=== PATIENT | female | born 1950 | race Caucasian/White ===

== ENCOUNTER 2017-10-23 21:50 | Inpatient (IN) | payer MEDICARE, BC ==
[2017-10-24] MEDS ORDERED: Piperacillin/Tazobactam 3.375 GM in Sodium Chloride 0.9% 100 ML IVPB SCH (00:30)
[2017-10-24 00:52] LABS: #Lymphocytes 1.4 thou/uL (1.20-3.40); #Neutrophils 12.2 thou/uL (1.40-6.50); %Basophils 0.2 % (0.0-1.0); %Eosinophils 0.2 % (0.0-10.0); %Lymphocytes 8.8 % (21.0-51.0); %Monocytes 12.5 % (0.0-10.0); %Neutrophils 78.3 % (42.0-75.0); Hemoglobin 10.9 g/dL (12.0-16.0); Mean Corpuscular HGB CONC 33.1 g/dL (32.0-36.0); Mean Corpuscular Hemoglobin 30.3 pg (27.0-31.0); Mean Corpuscular Volume 91.6 fl (81.0-99.0); Mean Platelet Volume 7.3 fL (7.4-10.4); Platelet Count 408 thou/uL (130-400); RBC Distribution Width 11.2 % (11.5-14.5); Red Blood Cell (RBC) Count 3.59 mill/uL (4.20-5.40); White Blood Cell (WBC) Count 15.6 thou/uL (4.8-10.8)
[2017-10-24 00:57] LABS: INR-International Normal Ratio 1.2; Prothrombin Time 15.3 SEC (12.0-14.7)
[2017-10-24 00:58] LABS: PTT 39.4 SEC (22.9-36.1)
[2017-10-24 01:14] LABS: ALT (SGPT) 17 U/L (8-55); AST (SGOT) 20 U/L (5-34); Albumin 3.3 g/dL (3.4-4.8); Alkaline Phosphatase 124 U/L (40-150); Anion Gap 14 mmol/L (10-20); BUN (Urea Nitrogen) 8 mg/dL (9.8-20.1); Bilirubin, Total 0.3 mg/dL (0.2-1.2); Calc. Creatinine Clearance 0 mL/min (70-130); Calcium 8.9 mg/dL (7.8-10.44); Carbon Dioxide 22 mmol/L (23-31); Chloride 103 mmol/L (98-107); Estimated GFR-MDRD Greater than 90; Globulin 3.4 g/dL (2.4-3.5); Glucose 109 mg/dL (80-115); Potassium 3.8 mmol/L (3.5-5.1); Protein, Total 6.7 g/dL (6.0-8.3); Sodium 135 mmol/L (136-145)
[2017-10-24 01:18] LABS: CKMB 0.4 ng/mL (0-6.6); Troponin I Less than 0.010 ng/mL (< 0.028)
[2017-10-24] MEDS ORDERED: Acetaminophen 325 MG TAB PO PRN (04:56)
[2017-10-24] MEDS ORDERED: Ondansetron HCl/PF 4 MG/2 ML Vial IVP PRN (04:56)
[2017-10-24] MEDS ORDERED: Ondansetron ODT 4 MG TAB SL PRN (04:56)
[2017-10-24 05:29] VITALS: BMI 20.5
--- NOTE | 2017-10-24 11:33 | PDOC.EVN ---
Event Note - Event Note Event Note: [id number] H&P Dictated 1. pneumonia 2. r/o lung mass 3. atypical chest pain 4. H/O MS
[2017-10-24] MEDS ORDERED: HYDROcodone/Acetaminophen 5/325 mg Tablet PO PRN (11:36)
[2017-10-24] MEDS: Azithromycin 500 MG in Sodium Chloride 0.9% 250 ML 250 ML IVPB SCH (13:33)
[2017-10-24 13:58] LABS: Troponin I Less than 0.010 ng/mL (< 0.028)
[2017-10-24] MEDS: Acetaminophen 325 MG TAB PO PRN (16:21)
--- NOTE | 2017-10-24 16:59 | HP ---
DATE OF ADMISSION: 10/24/2017 CHIEF COMPLAINT: Cough. HISTORY OF PRESENT ILLNESS: The patient is a 67-year-old female with past medical history of multipl e sclerosis, now came to the hospital with complaints of cough. The patient was having cough and sor e throat and runny nose for the past 1 month. Patient was diagnosed having allergies, but patient's symptoms persisted, so she went to a nurse practitioner, patient was sent for chest x-ray. Chest x-r ay was abnormal, so patient had a CT chest. CT chest showed some possible pneumonia and mass, so anabella pena was advised to come to [facility] and patient was transferred from [facility] to our [facility]. The patient complains of cough with sputum production, sputum brown in color, there is some blood tinge also. Complains of right-sided chest pain, intermittent, sharp kind of pain, worsens with angi athing. Denies any fever, denies any chills, denies any cough, denies production, denies any diarrhe a, denies any bloody stools, denies any black stools. PAST MEDICAL HISTORY: As per HPI. SOCIAL HISTORY: Denies smoking, denies alcohol, and denies any drugs. PAST SURGICAL HISTORY: . FAMILY HISTORY: Reviewed. MEDICATIONS: Reviewed. REVIEW OF SYSTEMS: Constitutional: Denies any fever, denies any chills. Eyes: No visual problems. Nose: Positive for rhinorrhea. Oral Cavity: Positive for sore throat. Neck: Denies any neck pa in. Cardiovascular System: Positive for right-sided chest pain. Cranial Nerve System: Denies sync ope. Psychiatric: Denies anxiety. Integument: Denies any rash. Respiratory System: Positive for cough and sputum production. Gastrointestinal: Denies nausea, vom iting. Genitourinary: Denies dysuria. All other review of systems are reviewed and are negative. PHYSICAL EXAMINATION: CONSTITUTIONAL/VITAL SIGNS: At the time of H and P performed, temperature 100.4, heart rate 93, resp iration 16, blood pressure is 113/64, pulse ox 97%. GENERAL: This patient appears comfortable. HEENT: Pupils equal, round, and reactive to light. Naris patent. Nose normal. Ears normal. Teeth intact. Tongue is moist. NECK: Supple, no JVD. CARDIOVASCULAR SYSTEM: S1, S2 present. Regular rate and rhythm, no murmurs, no rubs, no gallops. RESPIRATORY SYSTEM: Positive for right side diminished breath sounds present. Positive for crackles . No wheezing, no accessory muscle seen. GASTROINTESTINAL: Abdomen is soft, nontender, no guarding, no organomegaly, no masses felt. MUSCULOSKELETAL: No edema. CRANIAL NERVE SYSTEM: Awake, follows commands. Speech clear. PSYCHIATRIC: Mood appropriate at this time. INTEGUMENTARY: No rashes seen. LABORATORY DATA: Labs at the time of H and P performed, sodium 134, potassium 3.8, chloride 103, CO2 of 22, BUN of 18 and creatinine 0.64, albumin 3.3. PT 15.3, INR 1.2. White count 15.6, hemoglobin 10.9, platelets 148. ASSESSMENT AND PLAN: The patient is a 67 years old female. 1. Pneumonia. Plan to start patient on broad-spectrum antibiotics. Plan to start patient on IV Lev aquin and Rocephin. Monitor patient closely. Plan to send sputum for culture and sensitivity. 2. Right-sided atypical chest pain, possible pleurisy. If cardiac enzymes negative, we will . We will monitor the patient closely at this time with p.r.n. pain medications. 3. Rule out lung mass. Plan to consult Pulmonary to evaluate the patient and we will wait for CT re port. If CT report is abnormal, we will consult Oncology also. 4. History of multiple sclerosis. Continue home medications. The case was discussed in detail with the patient. Patient is FULL CODE.
[2017-10-24 19:41] LABS: Troponin I Less than 0.010 ng/mL (< 0.028)
[2017-10-24] MEDS: clonazePAM 0.5 MG TAB PO SCH (19:54)
[2017-10-24 23:50] LABS: Legionella Urinary Ag Negative (Negative); Strep pneumo Urine Ag NEGATIVE (NEGATIVE)
[2017-10-25] MEDS ORDERED: Loratadine 10 MG TAB PO SCH ×2 (01:00→09:00)
[2017-10-25] MEDS: clonazePAM 0.5 MG TAB PO SCH ×2 (02:31→02:35)
--- NOTE | 2017-10-25 02:44 | CON ---
DATE OF CONSULTATION: 10/24/2017 SERVICE: Pulmonary Medicine. REASON FOR CONSULTATION: Abnormal CT finding. HISTORY OF PRESENT ILLNESS: The patient is a 67-year-old white female with past medical history significant for insomnia. She uses Ambien and clonazepam in order to help her sleep at night. She was in her usual state of health until roughly 2 days prior to presentation. She started having onset of chest discomfort. She had a low grade temperature. She presented to her primary care physician who did a chest x-ray demonstrating an infiltrate. CT scan was performed. She was then called from home and told to go directly to the emergency department. In [place], she was subsequently transitioned to us. She has been coughing up a little bit of brown sputum for a couple of days. She denied any significant hemoptysis, nausea, vomiting or diarrhea. She had no arthralgias or rashes. Since being in the hospital, she has actually started feeling better already. She has been started on some broad spectrum antibiotics. PAST MEDICAL HISTORY: 1. Multiple sclerosis. 2. Insomnia. PAST SURGICAL HISTORY: section. FAMILY HISTORY: Noncontributory. SOCIAL HISTORY: Negative for alcohol, tobacco or illicit drug use. She is a lifelong nonsmoker. She denies any exposure to chemicals, dust asbestos or tuberculosis. ALLERGIES: SULFA and ASPIRIN. MEDICATIONS: List of her home medications as well as inpatient medications were reviewed. Multiple updates were made. REVIEW OF SYSTEMS: General, head, ears, eyes, nose, throat, cardiovascular, respiratory, GI, , musculoskeletal, neurologic and skin is negative except as mentioned in the HPI. PHYSICAL EXAMINATION: VITAL SIGNS: Currently afebrile with T-max over the last 12 hours 100.5, pulse 109, blood pressure 124/57, respirations 16, saturation 97% on room air. GENERAL: Patient is awake, alert, in no apparent distress. LUNGS: Decent air entry. There is no prolonged expiratory phase. There is E: A egophony in the right anterior chest. Dullness to percussion is located at that site. HEART: Normal rate and regular. ABDOMEN: Soft, nontender, nondistended. Bowel sounds are positive. MUSCULOSKELETAL: No cyanosis or clubbing. No pitting in the bilateral lower extremities. NEUROLOGIC: Grossly nonfocal. LABORATORY DATA: WBC 15.6, hemoglobin 10.9, platelets 408,000. INR 1.2. Basic metabolic profile and liver function studies are otherwise unremarkable. Cardiac enzymes are negative x3. Lactate is also unremarkable. Influenza A and B is negative. IMAGING: CT of the chest demonstrates a very dense consolidation in the anterior segment of the right upper lobe and fully soaked in right middle lobe. This is not atelectasis as they are clearly air bronchograms. It is full of fluid suggestive of pneumonia. There is also a small hypodense lesion in the medial segment of the right middle lobe. This may be early abscess formation. Underlying mass cannot be excluded; however. Otherwise, there is no acute cardiopulmonary abnormality. ASSESSMENT: 1. Community-acquired pneumonia, severe. 2. Obstructive sleep apnea, suspected. 3. Multiple sclerosis. DISCUSSION AND PLAN: The patient will follow up with me in clinic in 2 weeks with a pre-clinic chest x-ray. I would like for her to go out on a 2-week course of Levaquin. I will add strep and legionella urine antigen. She can be considered for transition to home if her fever profile improves by the morning. In 2 weeks, we will arrange for her to undergo an outpatient CT of the chest in roughly 2 months. In the meantime, we will get plugged in for a polysomnogram if possible. I would prefer for her to do an in-lab study with her history of multiple sclerosis. Cough suppressants will be discontinued. 70 minutes have been devoted to this patient in various activities. I personally reviewed all imaging studies and laboratory data noted within this document. For at least half of this time, I was interacting with the patient at the bedside or coordinating care with the care team. For the remainder of the time I was immediately available to the patient in the hospital unit. SONIA
[2017-10-25 06:35] LABS: #Eosinphils 0.1 thou/uL (0.0-0.7); #Lymphocytes 1.3 thou/uL (1.20-3.40); #Monocytes 1.3 thou/uL (0.11-0.59); #Neutrophils 8.8 thou/uL (1.40-6.50); %Basophils 0.1 % (0.0-1.0); %Eosinophils 0.5 % (0.0-10.0); %Lymphocytes 11.2 % (21.0-51.0); %Monocytes 11.1 % (0.0-10.0); %Neutrophils 77.1 % (42.0-75.0); Hemoglobin 9.9 g/dL (12.0-16.0); Mean Corpuscular HGB CONC 33.2 g/dL (32.0-36.0); Mean Corpuscular Hemoglobin 30.3 pg (27.0-31.0); Mean Corpuscular Volume 91.1 fl (81.0-99.0); Mean Platelet Volume 6.8 fL (7.4-10.4); Platelet Count 407 thou/uL (130-400); RBC Distribution Width 11.2 % (11.5-14.5); Red Blood Cell (RBC) Count 3.28 mill/uL (4.20-5.40); White Blood Cell (WBC) Count 11.4 thou/uL (4.8-10.8)
[2017-10-25 06:46] LABS: Anion Gap 10 mmol/L (10-20); BUN (Urea Nitrogen) 8 mg/dL (9.8-20.1); Calc. Creatinine Clearance 75 mL/min (70-130); Carbon Dioxide 25 mmol/L (23-31); Chloride 104 mmol/L (98-107); Estimated GFR-MDRD Greater than 90; Glucose 114 mg/dL (80-115); Potassium 3.9 mmol/L (3.5-5.1); Sodium 135 mmol/L (136-145)
[2017-10-25] MEDS: ALPHA LIPOIC ACID 200 MG PO SCH ×2 (08:45→12:04)
[2017-10-25] MEDS ORDERED: B COMPLEX PO SCH (09:00)
[2017-10-25] MEDS ORDERED: medroxyPROGESTERone Acetate 5 MG TAB PO SCH (09:00)
[2017-10-25] MEDS ORDERED: Magnesium Oxide 400 MG TAB PO SCH (09:00)
[2017-10-25] MEDS ORDERED: LUTEIN 6 MG PO SCH (09:00)
[2017-10-25] MEDS ORDERED: Ascorbic Acid 500 mg Chewable Tablet PO SCH (09:00)
[2017-10-25] MEDS ORDERED: Calcium Carbonate + Vit D 1 TAB PO SCH (09:00)
--- NOTE | 2017-10-25 10:25 | PDOC.PN ---
- Subjective Encounter Start Date: 10/25/17 Encounter Start Time: 13:32 CC: Pneumonia Sub: Pt denies dyspnea. says he feels better - Objective Vital Signs & Weight: Vital Signs (12 hours) Temp Pulse Resp BP BP Pulse Ox 10/25/17 07:50 98.8 F 96 16 116/57 L 97 10/25/17 03:43 98.7 F 103 H 16 123/57 L 96 10/24/17 23:20 98.0 F 114 H 16 144/65 H 99 10/24/17 23:04 94 L Weight Weight 119 lb 14.903 oz I&O: 10/24/17 10/25/17 10/26/17 06:59 06:59 06:59 Intake Total 250 1950 Balance 250 1950 Result Diagrams: 10/25/17 06:04 10/25/17 06:04 Dx/Plan - Plan - Physical Examination Constitutional: NAD HEENT: moist MMs Neck: no JVD Respiratory: no wheezing, no rales, no rhonchi Cardiovascular: RRR, no significant murmur, no rub, gallop Gastrointestinal: soft, non-tender, no distention Musculoskeletal: no edema Neurological: non-focal not oriented, follows commands Psychiatric: normal affect -: positive for unstageable sacral decubitus ulcer Dx/Plan - Plan Pt is 67 yrs old female now admitted to hospital due to cough 1. Pneumonia: legionella ag, urinary ag negative. Preliminary cultures no growth so far Appreciate pulmonary input 2. R/O Lung mass: Reviewed pulmonary note. Recommend repeat CT chest as outpt Monitor for now 3. Rt side chest pain/Pleurisy: PRN pain med Monitor respiratory status closely 4. H/O MS: Continue home meds 5. Dispo: Discharge today.
[2017-10-25] MEDS: Azithromycin 500 MG in Sodium Chloride 0.9% 250 ML 250 ML IVPB SCH (11:58)
[2017-10-25] MEDS: Acetaminophen 325 MG TAB PO PRN (11:58)
[2017-10-25 14:48] VITALS: BP 130/60; TEMP 98.7
--- NOTE | 2017-10-25 20:06 | DIS ---
DATE OF ADMISSION: 10/24/2017 DATE OF DISCHARGE: 10/25/2017 DISCHARGE DIAGNOSES: 1. Pneumonia. 2. Atypical chest pain, right-sided. 3. Anemia. 4. History of multiple sclerosis. 5. Rule out lung mass. DISCHARGE CONDITION: Stable. DISPOSITION: Home. DISCHARGE MEDICATION: See med rec form. HISTORY OF PRESENT ILLNESS: See initial HPI. CONSULTANTS DURING THE HOSPITAL STAY: Pulmonary. HOSPITAL COURSE: Patient is a 67-year-old female admitted secondary to pneumonia. 1. Pneumonia. The patient was seen by Pulmonary patient was treated with IV antibiotics. Patient w as suspected to having possible lung mass, but Pulmonary saw the patient and recommended no further w orkup, recommended to follow up with repeat CT chest in 2-3 weeks upon discharge with him. The patie nt agreed to follow up with Dr. Easley as an outpatient upon discharge, so patient was discharged on p.o. antibiotics as Dr. Easley recommended for 2 more weeks and recommended to see him as an outpat ient for repeat CT chest. 2. History of MS. The patient was advised to continue home medications, stable during the hospital s [place]. 3. Anemia. Hemoglobin monitored and was stable. 4. Right-sided atypical chest pain. Cardiac enzymes were done which was negative. On the day of discharge, patient is stable. Please see progress note for physical exam. DISCHARGE CONDITION: Stable. DISPOSITION: Home. DISCHARGE INSTRUCTIONS: 1. Follow with PCP in 2-3 days. 2. Follow up with Pulmonary, Dr. Easley in 1-[address] chest. 3. Finish antibiotic course. DISCHARGE TIME: 40 minutes.
--- NOTE | 2017-11-28 18:18 | EKG ---
Test Reason : CP Blood Pressure : / mmHG Vent. Rate : 101 BPM Atrial Rate : 101 BPM P-R Int : 156 ms QRS Dur : 062 ms QT Int : 314 ms P-R-T Axes : 060 069 052 degrees QTc Int : 407 ms Sinus tachycardia with Premature atrial complexes Otherwise normal ECG Confirmed by WEST FARIAS ([id number]), non linear editor COLLINS MROALES ([id number] on 11/28/2017 6:18:11 PM Referred By: Confirmed By:WEST FARIAS
== END 2017-10-25 15:10 | disposition home or self-care (01) | DRG 195 ==
LOC: ERS 21:50 → ERHOLD 10-24 01:09 → ONC 10-24 04:45
PROVIDERS: ADMIT Hospitalist; ATTEND Hospitalist
DX: J18.9 Pneumonia, unspecified organism (principal); G35 Multiple sclerosis; D64.9 Anemia, unspecified; G47.33 Obstructive sleep apnea (adult) (pediatric)
CPT/HCPCS: 36415; 80048; 80053; 82553; 83605; 84484; 85025; 85610; 85730; 86850; 86900; 86901; 87040; 87804; 87899; 93005; 94640; 96365; J0456; J1956; J2543; J7050; J7620

== ENCOUNTER 2017-11-06 09:54 | Outpatient (CLI) | payer MEDICARE, BC ==
--- NOTE | 2017-11-06 11:17 | RAD ---
PA AND LATERAL CHEST XRAY: DATE: 11/06/17. HISTORY: Dyspnea. FINDINGS: There is a patchy parenchymal opacity seen within the anterior aspect of the right upper lobe. The l eft lung is clear. There is biapical pleural and parenchymal scarring present. Lungs are mildly hyp erexpanded. The left lung is clear. Cardiac silhouette and pulmonary vasculature are within normal limits. Vascular calcifications are seen in the thoracic aorta. IMPRESSION: Patchy nodular parenchymal opacity within the right upper lobe. This could be related to focal area of pneumonia, but a neoplastic process cannot be excluded. If the patient has clinical signs and sym ptoms of pneumonia, a followup evaluation in 3 months is recommended after treatment to ensure resolu tion. However, if the patient does not have signs or symptoms of pneumonia, a CT scan of the thorax is recommended for further evaluation. CODE T POS: GRISELDA
== END 2017-11-06 09:55 | disposition home or self-care (01) ==
LOC: RAD 09:54
PROVIDERS: ATTEND Family Medicine
DX: R06.00 Dyspnea, unspecified (principal); R91.8 Other nonspecific abnormal finding of lung field
CPT/HCPCS: 71046